=== PATIENT | male | born 1960 | race Caucasian/White ===

== ENCOUNTER 2025-07-31 18:14 | Inpatient (IN) | payer SELFPAY ==
[~2025-07-31] VITALS: Ht 157.5 cm; Wt 62.6 kg
[2025-07-31 18:18] VITALS: O2SAT 99
[2025-07-31 21:16] LABS: BASOPHILS % 0.6 % (0.0-2.0); EOSINOPHILS % 0.6 % (0.0-5.0); HEMATOCRIT. 45.3 % (42.0-52.0); HEMOGLOBIN. 15.1 g/dL (14.0-18.0); LYMPHOCYTES % 50.0 % (20.0-50.0); MEAN PLATELET VOLUME 8.2 fl (7.4-10.4); MONOCYTES % 8.8 % (2.0-8.0); NEUTROPHILS % 40.0 % (40.0-76.0); PLATELET 169 x1000/uL (130-400); RED BLOOD CELL COUNT 4.63 mill/uL (4.7-6.1); RED CELL DISTRIBUTION WIDTH 17.4 % (11.6-14.6)
[2025-07-31 21:31] LABS: CREATININE 0.8 mg/dL (0.6-1.3); UREA NITROGEN BLOOD < 5 mg/dL (9-23)
[2025-07-31 21:54] LABS: ETHANOL BLOOD 527 mg/dL (<10)
[2025-08-01] VITALS (7 sets, daily range): BP systolic 97–131; BP diastolic 53–90; PULSE 89–113; RESP 18–20; TEMP 35.8–36.6; O2SAT 97–98
[2025-08-01] MEDS: FOLIC ACID 1 MG, THIAMINE HCL 100 MG, MVI, ADULT NO.1 10 ML in DEXTROSE 5% WATER 1,000 ML IV ONE (00:31)
[2025-08-01] MEDS: SODIUM CHLORIDE 0.9% 1,000 ML IV ONE (00:32)
[2025-08-01] MEDS: CHLORDIAZEPOXIDE 25MG CAPSULE PO SCH (05:29)
[2025-08-01 07:25] LABS: *AMPHETAMINES SCREEN URINE NEGATIVE (NEGATIVE); *BARBITURATES SCREEN URINE NEGATIVE (NEGATIVE); *BENZODIAZEPINES SCREEN URINE NEGATIVE (NEGATIVE); *COCAINE SCREEN URINE NEGATIVE (NEGATIVE); CANNABINOID URINE SCREEN NEGATIVE (NEGATIVE); ECSTASY MDMA SCREEN URINE NEGATIVE (NEGATIVE); METHADONE URINE SCREEN NEGATIVE (NEGATIVE); OPIATES URINE SCREEN NEGATIVE (NEGATIVE); PHENCYCLIDINE URINE SCREEN NEGATIVE (NEGATIVE)
[2025-08-01] MEDS: PANTOPRAZOLE SODIUM 40 MG/VIAL IV SCH (09:18)
[2025-08-01] MEDS: THIAMINE HCL 100MG TABLET PO SCH (09:19)
[2025-08-01] MEDS ORDERED: LORAZEPAM 1MG TABLET PO PRN (11:30)
[2025-08-01] MEDS: ENOXAPARIN 40MG/0.4ML SYR SUBCUT SCH (14:00)
[2025-08-02] VITALS: BP 130/70; PULSE 63; RESP 20; TEMP 36.4; O2SAT 97
[2025-08-02 04:00] VITALS: BP 118/64; PULSE 70; RESP 19; TEMP 36.7
[2025-08-02 08:00] VITALS: BP 103/67; PULSE 70; RESP 18; TEMP 36.4; O2SAT 97
[2025-08-02 12:00] VITALS: BP 105/70; PULSE 80; RESP 18; TEMP 36.4; O2SAT 99
[2025-08-02 15:50] VITALS: BP 125/81; PULSE 86; RESP 18; TEMP 36.2; O2SAT 98
[2025-08-02 20:00] VITALS: BP 125/81; PULSE 79; RESP 20; TEMP 36.4; O2SAT 97
[2025-08-03] VITALS: BP 134/71; PULSE 83; RESP 20; TEMP 36.1; O2SAT 97
[2025-08-03 08:00] VITALS: BP 111/69; PULSE 87; RESP 18; TEMP 36.8; O2SAT 96
[2025-08-03 11:09] VITALS: BP 111/69; PULSE 87; RESP 18; TEMP 98.2
== END 2025-08-03 13:25 | disposition home or self-care (01) | DRG 52 ==
LOC: ER 18:14 → 6WST 23:41 → EDBD 23:41 → EDBEDREQTM 23:42 → EDBEDREQ 23:42 → 6EST 08-03 01:13
PROVIDERS: ADMIT Internal Medicine; ATTEND Internal Medicine
DX: G92.9 Unspecified toxic encephalopathy (principal); E87.6 Hypokalemia; F10.229 Alcohol dependence with intoxication, unspecified; Y90.8 Blood alcohol level of 240 mg/100 ml or more
CPT/HCPCS: 36415; 80048; 80305; 80320; 85025; 99285; J1650; J2470; J3411; J3490; J7070; G0480